=== PATIENT | male | born 1975 ===

== ENCOUNTER 2019-05-12 06:00 | Day surgery (SDC) | payer OTHER ==
[~2019-05-12 06:00] MED LIST: LOSARTAN-HCTZ1 EAC1; NORVASC2.5 M1
== END 2019-05-12 11:55 | disposition home or self-care (01) ==
LOC: CIR.AMB 06:00
DX: K43.0 Incisional hernia with obstruction, without gangrene (principal)

== ENCOUNTER 2019-05-16 22:47 | Inpatient (IN) | payer OTHER ==
[~2019-05-16] VITALS: Ht 170.2 cm; Wt 116.1 kg
--- NOTE | 2019-05-16 23:18 | NUR ---
PTE REFEIRE QUE FUE OPERADO DE HERNI EN EL OMBLIGO EL JUEVES POR EL ,KINDRA WALKER Y COMENZO CON VOMITOS EL VIERNES Y NO PERLA PARADO . HOY SE SIENTE DEBIL Y CON DOLOR EN EL AREA DE LA OPERACION.
--- NOTE | 2019-05-17 00:31 | NUR ---
SE ORIENTA A PTE SOBRE PROCESO DE VENOPUNCION, KELSEY DE MUESTRAS, ADMINISTRACION DE MED IV Y ESTUDIO A REALIZAR X RAY.
--- NOTE | 2019-05-17 03:17 | NUR ---
SE COLOCA TUBO NASOGASTRICO SORAIDA ORDENADOS,UTILIZANDO MEDIDAS ASEPITICAS. MEDICAMENTOS SON ADMINISTRADOS SORAIDA ORDENADOS.PACIENTE Y FAMILIAR SON ORIENTADOS SOBRE PROCEDIMIENTOS A LLEVARSE A CABO,LO CUAL REFIERE COMPRENDER. MANTENIDO CON CABEZERA A 45 GR[address]OAS,BARANDAS ELEVADAS,TIMBRE ACCESIBLE Y EN OBSERVACION SANDRA POR CAMBIOS EN CONDICION.
== END 2019-05-25 14:20 | disposition home or self-care (01) | DRG 389 ==
LOC: ER 22:47 → SURG 05-17 07:45
PROVIDERS: ADMIT Surgery
PROC: BW21ZZZ Computerized Tomography (CT Scan) of Abdomen and Pelvis (ICD-10-PCS; principal; 2019-05-17)
PROC: 0DH67UZ Insertion of Feeding Device into Stomach, Via Natural or Artificial Opening (ICD-10-PCS; 2019-05-17)
PROC: 3E0G76Z Introduction of Nutritional Substance into Upper GI, Via Natural or Artificial Opening (ICD-10-PCS; 2019-05-18)
PROC: BW21Y0Z Computerized Tomography (CT Scan) of Abdomen and Pelvis using Other Contrast, Unenhanced and Enhanced (ICD-10-PCS; 2019-05-23)
DX: K56.51 Intestinal adhesions [bands], with partial obstruction (principal); E44.0 Moderate protein-calorie malnutrition; N17.8 Other acute kidney failure; J98.11 Atelectasis; B37.41 Candidal cystitis and urethritis; K42.9 Umbilical hernia without obstruction or gangrene; I10 Essential (primary) hypertension